=== PATIENT | female | born 1960 | race Caucasian/White ===

== ENCOUNTER 2024-06-25 10:32 | Outpatient (AMB) | payer MEDICARE, OTHER, SELFPAY ==
[2024-06-25 10:36] VITALS: BP 142/70; PULSE 90; O2SAT 98; BMI 22.5
--- NOTE | 2024-06-25 10:36 | A.OFFVIS_ITS ---
Vital Signs 06/25/24 10:36 Height 5 ft 3 in Weight 126 lb 12.253 oz BMI 22.5 BP 142/70 H Blood Pressure Location Lt brachial Position Sitting Pulse 90 Pulse Source Pulse Oximeter Pulse Oximetry (%) 98 Oxygen Delivery Method Room Air Intake Visit Reasons: Cough Scrap Drop Operator Required: No Allergies doxycycline Adverse Reaction (Severe, Verified 06/25/24 10:39) Stomach Upset HPI Comments Details: The patient is here for pulmonary evaluation. The patient is a 64-year-old woman with a known history of multiple sclerosis presenting with a persistent cough. Patient states that she was in her usual state health until back in October when she started developing a viral syndrome like symptoms. Subsequently after that she developed a cough and it has been persistent. The cough tends to be moderate severity. Typically worse when she lays flat specially when she is going to get a bed. The patient states that sometimes she is able to bring up some phlegm. Denies any hemoptysis. Recently she was at a restaurant and she was choking while eating chicken. Somebody in the restroom did give her Heimlich maneuver and remove some Unidentified food. The patient did have a chest x-ray just recently [facility]. We did review together without any significant disease although it appears that she does have a hernia. I also reviewed a CT scan of the chest that she had back in 2020. She did have a that it esophagus with food stuff suggesting some degree of reflux. In addition to that she did have a moderate size hiatal hernia. In addition to that the patient did have airspace disease primarily in the right lower lobe suggesting aspiration pneumonitis. I explained to the patient she has multiple reasons for her underlying cough. The patient does have evidence pneumonitis on her CT scan least from 2020. the x-rays non diagnostic. I do believe that repeating the CT scan be helpful in further addressing the abnormal findings seen before and her ongoing symptoms. In addition to that the patient likely has a component of upper airway cough syndrome. And also appears to have issues with gastroesophageal reflux disease. [facility] Medical History (Updated 06/25/24 @ 22:45 by Escobar Emerson MD) Multiple sclerosis Asthma Hiatal hernia Pneumonitis Chronic cough Social History (Updated 06/25/24 @ 10:43 by IHSAN Pandya) Patient Tobacco Use Status: Never used Tobacco Review of Systems Const Denies fever(s) ENT Reports dysphagia, Reports nasal discharge, Reports nasal obstruction and Reports post nasal drip Card Denies chest pain Resp Reports chest congestion, Reports cough and Denies wheezing GI Reports dysphagia Musc Reports no additional complaints Skin/Breast Denies rash Neuro Reports no additional complaints Osmar/Lymph Denies lymphadenopathy Aller/Immun Denies wheezing Physical Exam Vital Signs: Last Vital Signs Pulse 90 06/25/24 10:36 BP 142/70 H 06/25/24 10:36 Pulse Ox 98 06/25/24 10:36 Oxygen Delivery Method Room Air 06/25/24 10:36 BMI result Body Mass Index 22.5 Const General: comfortable HEENT General nose exam: Abnormal mucous membranes and turbinates present Mouth: moist mucous membranes abnormal Throat: Yes cobblestoning Neck Neck: Yes supple Chest Chest palpation & inspection: normal inspection of the chest Resp Effort & Inspection: normal respiratory effort and Actively coughing Auscultation: no crackles, no rales, no rhonchi, no wheezes and diminished lung sounds Cardio Heart sounds: S1 normal heart sound present and S2 normal heart sound present GI Palpation (GI): Soft to palpation Skin General skin exam: no rashes or lesions noted Assessment & Plan Assessment & Plan (1) Chronic cough: Code(s): R05.3 - Chronic cough Category: Medical (2) Pneumonitis: Code(s): J98.4 - Other disorders of lung Category: Medical (3) Hiatal hernia: Code(s): K44.9 - Diaphragmatic hernia without obstruction or gangrene Category: Medical (4) Asthma: Code(s): J45.909 - Unspecified asthma, uncomplicated Category: Medical Qualifiers: Asthma severity: moderate Asthma persistence: persistent Asthma complication type: uncomplicated Qualified Code(s): J45.40 - Moderate persistent asthma, uncomplicated Plan CT chest barium swallow start acapella valve start Augmentin cough medicine start Dulera BID continue STEFFI as needed reflux diet needs to sleep with HOB elevated F/U 4-6 weeks Orders: Orders CT chest wo IV con Today J98.4 - Other disorders of lung FL barium swallow Today K21.9 - Gastro-esophageal reflux disease without esophagitis, K44.9 - Diaphragmatic hernia without obstruction or gangrene Medications: New amoxicillin-pot clavulanate 875-125 mg 1 tab PO BID 10 days 20 tabs 0RF codeine-guaifenesin 10-100 mg/5 mL 10 mL PO Q6H 10 days PRN 300 mL 0RF cough mometasone-formoterol 200-5 mcg/actuation (Dulera) 2 puffs inhalation Q12H 30 days 13 grams 11RF Coding Level of Care Code New Pt Level 4 (60077) Diagnoses Chronic cough R05.3 Pneumonitis J98.4 Hiatal hernia K44.9 Moderate persistent asthma without complication J45.40 Asthma severity: moderate Asthma persistence: persistent Asthma complication type: uncomplicated Time Spent (min) 40
== END 2024-06-25 11:19 | disposition home or self-care (01) ==
PROVIDERS: PCP Pediatrics; Visit Provider Hospitalist
DX: R05.3 Chronic cough (principal); J98.4 Other disorders of lung; K44.9 Diaphragmatic hernia without obstruction or gangrene; J45.40 Moderate persistent asthma, uncomplicated
CPT/HCPCS: 99204

== ENCOUNTER → 2024-06-25 10:32 | Outpatient (BNVA) | payer MEDICARE, OTHER, SELFPAY | PROVIDERS: PCP Pediatrics; Visit Provider Hospitalist | DX: J98.4 Other disorders of lung (principal); R05.3 Chronic cough | CPT/HCPCS: 99202 ==

== ENCOUNTER 2024-08-26 11:10 | Outpatient (REF) | payer MEDICARE, OTHER, SELFPAY ==
--- NOTE | ~2024-08-26 | CT_ITS ---
EXAMINATION: CT CHEST WITHOUT CONTRAST CLINICAL INFORMATION: J98.4 - Other disorders of lung / PNEUMONITIS COMPARISON: None available. TECHNIQUE: Multidetector volumetric CT imaging of the chest was done. Axial MIP volume rendering provided. Sagittal and coronal reformatted images were obtained. This CT examination was performed using dose optimization techniques as appropriate, variously including the following: *Automated exposure control *Adjustment of mA and/or kV according to patient size (this includes techniques or standardized protocols for targeted exams where dose is matched to indication/reason for exam; i.e. extremities or head) *Use of iterative reconstruction technique DLP: 191 mGy-cm FINDINGS: LUNGS: No acute airspace disease. No interstitial lung disease. Central bronchial airways are open. Mild bilateral pleural parenchymal scarring at lung apices. Lung nodules: 3 mm right upper lobe lung nodule axial image 134/500 series 6. MEDIASTINUM: Heart size is normal. No aneurysm of aorta. Ascending aorta measures 3.8 cm. No pericardial effusion. Small volume calcifications of thoracic aorta. Moderate-sized hiatal hernia. No significant lymphadenopathy. CORONARY ARTERY CALCIFICATION: Small volume of coronary calcification PLEURA: There is no pleural effusion. No pleural mass or thickening. AXILLA: No lymphadenopathy. UPPER ABDOMEN: Unremarkable. OSSEOUS STRUCTURES: Multilevel degenerative spondylosis spine. Chronic mild compression deformity of the T8 vertebrae. No acute osseous abnormality. CT/CT chest wo IV con IMPRESSION: 1. No acute abnormality CT scan chest. 2. 3 mm right upper lobe lung nodule. No follow-up imaging recommended. According to the UPDATED 2017 Fleischner Society recommendations, the advised follow-up imaging for nodules <6mm in the upper lobes is not necessarily required in low-risk patients. In high-risk patients with a nodule in the upper lobe and/or demonstrating suspicious morphology, an optional CT follow-up at 12 months may be obtained. If stable at 12 months, no further follow-up is recommended. Moderate-sized hiatal hernia. Fleischner guidelines were followed. Electronically signed by: Patricio Badillo MD 09/24/2024 03:15 PM [facility]
== END 2024-08-26 11:11 | disposition home or self-care (01) ==
LOC: HO.CT 11:10
PROVIDERS: PCP Internal Medicine; Visit Provider Hospitalist
DX: J98.4 Other disorders of lung (principal)
CPT/HCPCS: 71250

== ENCOUNTER 2024-09-04 09:32 | Outpatient (REF) | payer MEDICARE, OTHER, SELFPAY ==
--- NOTE | ~2024-09-04 | FL_ITS ---
EXAMINATION: XR FLUOROSCOPY UPPER GI WITH AIR CLINICAL INFORMATION: Dysphagia. Reflux. COMPARISON: CT chest 08/2024 TECHNIQUE: Fluoroscopic air contrast upper GI examination was performed utilizing standard techniques with thin and thick barium and effervescent granules. Numerous spot images were obtained. FINDINGS: Lateral cine images of the oropharynx and hypopharynx demonstrate normal swallow mechanism with normal epiglottic inversion and soft palate elevation. No tracheal penetration, glottic or subglottic aspiration identified. No nasopharyngeal reflux present. A very small Zenker's diverticulum is present. There is moderate cricopharyngeal achalasia present. Dual and single contrast images of the esophagus demonstrate a very patulous esophagus. There is an overall granular appearance of the esophageal mucosa, suggestive of esophagitis. In addition, there is felinization of the mid and lower esophageal mucosa. There are multiple foci of contrast pooling throughout the esophagus, likely representing small mucosal ulcerations. There is mild narrowing of the GE junction, may represent achalasia. Esophageal peristalsis is moderately disorganized. A large type III paraesophageal hernia is present. Severe gastroesophageal reflux is seen up to the thoracic inlet. Dual contrast and single contrast images of the stomach demonstrated a normal contour. The gastric rugal folds have a severely thickened appearance, suggestive of gastritis. There are multiple small foci of contrast pooling in the fundus of the stomach within the hiatal hernia, which may represent small mucosal ulcerations. No masses are present. Contrast freely passed into the gastric antrum and duodenal bulb without delay. Single and air-contrast images of the duodenal bulb demonstrate no abnormality. The duodenal sweep has a normal appearance, course, and mucosal fold appearance. The imaged proximal jejunum has a normal fold pattern and caliber. FLUOROSCOPY TIME: 4 minutes 4 seconds Number of Spot Images: 13 Number of Cine: 14 DOSE AREA PRODUCT: 1779 uGy-m2 (microgray-meter squared) FL/FL barium swallow with air IMPRESSION: 1. Moderate cricopharyngeal achalasia. 2. Very small Zenker's diverticulum. 3. Granular appearance of the esophageal mucosa. In addition there are multiple foci of contrast pooling throughout the esophagus. These findings are suggestive of erosive gastritis. Recommend correlation of EGD. 4. Felinization of the mid and lower esophageal mucosa. This is a benign finding associated with chronic gastroesophageal reflux. 5. Moderate esophageal dysmotility. 6. Mild narrowing of the GE junction that may result achalasia. A benign stricture cannot be ruled out. 7. Type III paraesophageal hernia. 8. Severe gastric esophageal reflux. 9. Severely thickened appearance of the gastric rugal folds. In addition there are multiple small foci of contrast pooling in the fundus the stomach within the hiatal hernia. These findings are suggestive of erosive gastritis. Recommend correlation of EGD. This procedure was performed by Portillo Lopez PA-C, and supervised by Dr. Gilmore Electronically signed by: Latrell Gilmore MD 09/06/2024 04:19 PM [facility] [place]
== END 2024-09-04 09:33 | disposition home or self-care (01) ==
LOC: HO.XRAY 09:32
PROVIDERS: PCP Internal Medicine; Visit Provider Hospitalist
DX: K21.9 Gastro-esophageal reflux disease without esophagitis (principal); K44.9 Diaphragmatic hernia without obstruction or gangrene
CPT/HCPCS: 74221

== ENCOUNTER → 2024-09-04 09:33 | Outpatient (BNV) | payer MEDICARE, OTHER, SELFPAY | PROVIDERS: PCP Internal Medicine; Visit Provider Physician Assistant Surgical | DX: R13.10 Dysphagia, unspecified (principal); K21.9 Gastro-esophageal reflux disease without esophagitis | CPT/HCPCS: 74221; 74246 ==

== ENCOUNTER 2024-09-24 11:08 | Outpatient (AMB) | payer MEDICARE, OTHER, SELFPAY ==
[2024-09-24 11:10] VITALS: BP 132/68; PULSE 92; O2SAT 99; BMI 22.1
--- NOTE | 2024-09-24 11:10 | A.OFFVIS_ITS ---
Vital Signs 09/24/24 11:10 Height 5 ft 3 in Weight 124 lb 8.979 oz BMI 22.1 BP 132/68 Blood Pressure Location Lt brachial Position Sitting Pulse 92 Pulse Source Pulse Oximeter Pulse Oximetry (%) 99 Oxygen Delivery Method Room Air Intake Visit Reasons: Cough Sales Manager Prearranged Funerals Required: No Grinder Set Up Operator Surface: Grinder Set Up Operator Surface offered & declined Accompanied by: Self / Same As Patient Allergies doxycycline Adverse Reaction (Severe, Verified 09/24/24 11:17) Stomach Upset Medication List - Last Reconciled 09/24/24 by Lisa Prieto LPN albuterol sulfate 90 mcg/actuation 2 puffs inhalation Q6H PRN alendronate 70 mg PO QWEEK citalopram 20 mg PO DAILY codeine-guaifenesin 10-100 mg/5 mL 10 mL PO Q6H PRN 10 days dextroamphetamine-amphetamine 20 mg (Adderall) 20 mg PO DAILY dextroamphetamine-amphetamine 30 mg (Adderall) 30 mg PO DAILY lisinopril 5 mg PO DAILY mometasone-formoterol 200-5 mcg/actuation (Dulera) 2 puffs inhalation Q12H 30 days omeprazole 40 mg PO BID HPI Comments Details: The patient is a 64-year-old woman with a known history of multiple sclerosis presenting with a persistent cough. Patient states that she was in her usual state health until back in October when she started developing a viral syndrome like symptoms. Subsequently after that she developed a cough and it has been persistent. The cough tends to be moderate severity. Typically worse when she lays flat specially when she is going to get a bed. The patient states that sometimes she is able to bring up some phlegm. Denies any hemoptysis. Recently she was at a restaurant and she was choking while eating chicken. Somebody in the restroom did give her Heimlich maneuver and remove some Unidentified food. The patient did have a chest x-ray just recently [facility]. We did review together without any significant disease although it appears that she does have a hernia. I also reviewed a CT scan of the chest that she had back in 2020. She did have a that it esophagus with food stuff suggesting some degree of reflux. In addition to that she did have a moderate size hiatal hernia. In addition to that the patient did have airspace disease primarily in the right lower lobe suggesting aspiration pneumonitis. I explained to the patient she has multiple reasons for her underlying cough. The patient does have evidence pneumonitis on her CT scan least from 2020. the x-rays non diagnostic. I do believe that repeating the CT scan be helpful in further addressing the abnormal findings seen before and her ongoing symptoms. In addition to that the patient likely has a component of upper airway cough syndrome. And also appears to have issues with gastroesophageal reflux disease. 09/24/2024 the patient is here for a pulmonary follow-up visit. The patient overall has been doing better. Cough is subsides some degree in her chest tightness and cough have improved. She still has some chest congestion though and does been phlegm up on a regular basis. The patient did undergo a barium swallow is very abnormal. However, she does have a follow-up with Gastroenterology tomorrow which is timely. She will definitely need to undergo an endoscopy to better address the findings on her barium swallow. In the meantime we talked about the importance about sleeping elevated and continue reflux diet to try to minimize on the potential chronic cough in bronchitis symptoms. The patient did undergo a CT scan of the chest that was personally by me. Does not been officially read yet. But it definitely demonstrates that the patient has a large hiatal hernia in addition to that evidence of chronic bronchitis with some bronchiectatic changes the bases which could be due to microaspiration on a regular basis. She has responded well to the Dulera her exam is much better. And she does have her rescue inhaler that she can use as needed. She did receive the Acapella valve and she was not sure how to use it so we did go over she is going to start using at least once a day as a good way of exercising her lungs and also providing good bronchopulmonary hygiene. The patient returned back in the fall. She has any issues before that she can always call for an earlier assessment. In the meantime will wait for the final report of her CT scan of the chest. [facility] Medical History (Updated 09/24/24 @ 21:51 by Escobar Emerson MD) Multiple sclerosis Asthma Hiatal hernia Pneumonitis Chronic cough Social History Patient Tobacco Use Status: Never used Tobacco Review of Systems Const Denies fever(s) ENT Reports dysphagia and Reports nasal discharge Card Denies chest pain Resp Reports chest congestion, Reports cough and Denies wheezing GI Reports dysphagia Musc Reports no additional complaints Skin/Breast Denies rash Neuro Reports no additional complaints Osmar/Lymph Denies lymphadenopathy Aller/Immun Denies wheezing Physical Exam Vital Signs: Last Vital Signs Pulse 92 09/24/24 11:10 BP 132/68 09/24/24 11:10 Pulse Ox 99 09/24/24 11:10 Oxygen Delivery Method Room Air 09/24/24 11:10 BMI result Body Mass Index 22.1 Const General: comfortable HEENT General nose exam: Abnormal mucous membranes and turbinates present Mouth: moist mucous membranes abnormal Throat: Yes cobblestoning Neck Neck: Yes supple Chest Chest palpation & inspection: normal inspection of the chest Resp Effort & Inspection: normal respiratory effort Auscultation: no crackles, no rales, no rhonchi, no wheezes and diminished lung sounds Cardio Heart sounds: S1 normal heart sound present and S2 normal heart sound present GI Palpation (GI): Soft to palpation Skin General skin exam: no rashes or lesions noted Assessment & Plan Assessment & Plan (1) Chronic cough: Code(s): R05.3 - Chronic cough Category: Medical (2) Pneumonitis: Comment: resolved Code(s): J98.4 - Other disorders of lung Category: Medical (3) Hiatal hernia: Code(s): K44.9 - Diaphragmatic hernia without obstruction or gangrene Category: Medical (4) Asthma: Code(s): J45.909 - Unspecified asthma, uncomplicated Category: Medical Qualifiers: Asthma complication type: uncomplicated Asthma persistence: persistent Asthma severity: moderate Qualified Code(s): J45.40 - Moderate persistent asthma, uncomplicated Plan acapella valve Dulera BID continue STEFFI as needed reflux diet needs to sleep with HOB elevated GI F/U F/U 8-12 months Coding Level of Care Code Est Pt Level 4 (17718) Diagnoses Chronic cough R05.3 Pneumonitis J98.4 Hiatal hernia K44.9 Moderate persistent asthma without complication J45.40 Asthma complication type: uncomplicated Asthma persistence: persistent Asthma severity: moderate Time Spent (min) 17
--- OUTSIDE RECORDS SUMMARY | 2024-10-01 13:17 | XMS_ITS ---
[facility] Name [facility] Unknown History of Medication Use Medication Directions Dispensed Refills Start Date End Date Status methylPREDNISolone sodium succinate (SOLU-Medrol) injection 125 mg 125 mg, Intravenous, Once, On Mon05/22/24 at 1115, For 1 doseGive 30 minutes prior to ocrelizumab. ??Administer over 2-3 minutes 4 completed diphenhydrAMINE (BENADRYL) injection 50 mg 50 mg, Intravenous, Once, On Mon05/22/24 at 1115, For 1 doseGive 30 minutes prior to ocrelizumab. IV push over 2-3 minutes.??See PO diphenhydramine order. Please give PO or IV.??Common Side Effects: Drowsiness, stomach upset, confusion, dry mouth.??Administer undiluted. Maximum rate 25 mg/min. 4 completed omeprazole (PriLOSEC) 40 MG capsule 4 active amphetamine-dextroamph etamine (ADDERALL) 20 MG tablet TK 1 T PO QD 4 active acetaminophen (TYLENOL) tablet 975 mg 975 mg, Oral, Once, On Mon05/22/24 at 1115, For 1 doseGive 30 minutes prior to ocrelizumab. 4 completed Calcium Carb-Cholecalciferol (Oyster Shell Calcium) 500-400 MG-UNIT TABS Take 1 tablet by mouth. 4 active citalopram (CeleXA) 20 MG tablet 4 active alendronate (FOSAMAX) tablet 70 mg 4 active lisinopril (PRINIVIL,ZESTRIL) tablet 5 mg 4 active amphetamine-dextroamph etamine (ADDERALL) 30 MG tablet Take 1 tablet (30 mg total) by mouth. 4 active Ocrelizumab (OCREVUS IV) Inject into the vein. 4 active ocrelizumab (OCREVUS) 600 mg in sodium chloride (NS) 0.9 % 500 mL IVPB 600 mg, Intravenous, Once, On Mon05/22/24 at 1115, For 1 doseMust use in-line 0.22 micron filter. ??- Infusion Rate for first full 600 mg dose or reaction with previous infusion: Start at 40 mL/hr. Increase by 40 mL/hr every 30 minutes. Maximum rate: 200 mL/hr. Duration: 3.5 hours or longer.??- Infus 4 completed albuterol (PROVENTIL HFA;VENTOLIN HFA) 108 (90 Base) MCG/ACT inhaler Inhale 2 puffs into the lungs. 4 active baclofen (LIORESAL) 10 MG tablet 5 per day as directed 4 active LORazepam (ATIVAN) 0.5 MG tablet Take 1 tablet (0.5 mg total) by mouth daily as needed. for anxiety 4 active busPIRone (BUSPAR) 30 MG tablet TK 2 TS PO HS 4 active estradiol (ESTRACE) 0.1 MG/GM vaginal cream Place 1 g vaginally. 4 active vitamin D3 (cholecalciferol) 25 MCG (1000 UT) tablet Take 1 tablet (25 mcg total) by mouth daily. 4 active No known medications No known medications 4 active Problems Problem Status Onset Date Problem Type Date of Resoluti on Source Depression active 2020-03-26 ProblemAct [facility] Multiple sclerosis active 2020-07-14 ProblemAct [facility] Asthma active 2020-03-26 ProblemAct [facility] HTN (hypertension) active 2020-03-26 ProblemAct [facility]
== END 2024-09-24 11:42 | disposition home or self-care (01) ==
PROVIDERS: PCP Internal Medicine; Visit Provider Hospitalist
DX: R05.3 Chronic cough (principal); J98.4 Other disorders of lung; K44.9 Diaphragmatic hernia without obstruction or gangrene; J45.40 Moderate persistent asthma, uncomplicated
CPT/HCPCS: 99214

== ENCOUNTER → 2024-09-24 11:08 | Outpatient (BNVA) | payer MEDICARE, OTHER, SELFPAY | PROVIDERS: PCP Pediatrics; Visit Provider Hospitalist | DX: J45.40 Moderate persistent asthma, uncomplicated (principal); J98.4 Other disorders of lung; R05.3 Chronic cough; K44.9 Diaphragmatic hernia without obstruction or gangrene | CPT/HCPCS: 99212 ==

== ENCOUNTER 2025-07-24 11:19 | Outpatient (AMB) | payer MEDICARE, OTHER, SELFPAY ==
--- NOTE | 2025-07-24 11:20 | MHC.OFFVIS ---
Vital Signs 07/24/25 11:21 Height 5 ft 3 in Weight 122 lb 5.705 oz BMI 21.7 BP 156/88 H Blood Pressure Location Lt brachial Position Sitting Pulse 68 Pulse Source Pulse Oximeter Pulse Oximetry (%) 100 Oxygen Delivery Method Room Air Intake Visit Reasons: Cough Director Of Employer Services Required: No Accompanied by: Self / Same As Patient Allergies doxycycline Adverse Reaction (Severe, Verified 07/24/25 11:24) Stomach Upset HPI Comments Details: The patient is a 65-year-old woman with a known history of multiple sclerosis presenting with a persistent cough. Patient states that she was in her usual state health until back in October when she started developing a viral syndrome like symptoms. Subsequently after that she developed a cough and it has been persistent. The cough tends to be moderate severity. Typically worse when she lays flat specially when she is going to get a bed. The patient states that sometimes she is able to bring up some phlegm. Denies any hemoptysis. Recently she was at a restaurant and she was choking while eating chicken. Somebody in the restroom did give her Heimlich maneuver and remove some Unidentified food. The patient did have a chest x-ray just recently [facility]. We did review together without any significant disease although it appears that she does have a hernia. I also reviewed a CT scan of the chest that she had back in 2020. She did have a that it esophagus with food stuff suggesting some degree of reflux. In addition to that she did have a moderate size hiatal hernia. In addition to that the patient did have airspace disease primarily in the right lower lobe suggesting aspiration pneumonitis. I explained to the patient she has multiple reasons for her underlying cough. The patient does have evidence pneumonitis on her CT scan least from 2020. the x-rays non diagnostic. I do believe that repeating the CT scan be helpful in further addressing the abnormal findings seen before and her ongoing symptoms. In addition to that the patient likely has a component of upper airway cough syndrome. And also appears to have issues with gastroesophageal reflux disease. 09/24/2024 the patient is here for a pulmonary follow-up visit. The patient overall has been doing better. Cough is subsides some degree in her chest tightness and cough have improved. She still has some chest congestion though and does been phlegm up on a regular basis. The patient did undergo a barium swallow is very abnormal. However, she does have a follow-up with Gastroenterology tomorrow which is timely. She will definitely need to undergo an endoscopy to better address the findings on her barium swallow. In the meantime we talked about the importance about sleeping elevated and continue reflux diet to try to minimize on the potential chronic cough in bronchitis symptoms. The patient did undergo a CT scan of the chest that was personally by me. Does not been officially read yet. But it definitely demonstrates that the patient has a large hiatal hernia in addition to that evidence of chronic bronchitis with some bronchiectatic changes the bases which could be due to microaspiration on a regular basis. She has responded well to the Dulera her exam is much better. And she does have her rescue inhaler that she can use as needed. She did receive the Acapella valve and she was not sure how to use it so we did go over she is going to start using at least once a day as a good way of exercising her lungs and also providing good bronchopulmonary hygiene. The patient returned back in the fall. She has any issues before that she can always call for an earlier assessment. In the meantime will wait for the final report of her CT scan of the chest. 07/24/2025 the patient is here for pulmonary follow-up visit. She continues have a cough. The cough is moderate severity mainly worse when she lays flat. Therefore she has been sleeping on a recliner. She does a lot better with that. We did again review her barium swallow demonstrating hiatal hernia and significant reflux disease and also other changes including a possible was Zenker's and significant gastritis. The last time she had an endoscopy was many years ago. She did follow-up with Dr. Lao in the past. Now she has a new GI doctor. I did encourage her to go back to GI because she should get another endoscopy in view of all the changes in abnormalities noted on the barium swallow. In the meantime she is doing the PPI twice a day. I did request that she can add Pepcid at nighttime to help her with some of the symptoms. The patient should also sleep elevated. We did talk about bed risers for the bed and following closely reflux diet. Will start her on nasal sprays for the possibility of an upper airway cough syndrome but I do not see any significant cobblestoning in the back of the throat or significant postnasal drip. Still will can try the nasal spray to see if this provides some relief and the patient can also try Bentson Josh as needed for cough. She does take an JOSH inhibitor. Not likely the culprit but likely increasing bradykinesia and therefore decreasing the cough threshold. 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 Will follow-up in 6 months if she has any issues prior to this she can always call further recommendations. [facility] Medical History (Updated 09/24/24 @ 21:51 by Escobar Emerson MD) Multiple sclerosis Asthma Hiatal hernia Pneumonitis Chronic cough Social History Patient Tobacco Use Status: Never used Tobacco Review of Systems Const Denies fever(s) ENT Reports dysphagia and Reports nasal discharge Card Denies chest pain Resp Reports chest congestion, Reports cough and Denies wheezing GI Reports dysphagia Musc Reports no additional complaints Skin/Breast Denies rash Neuro Reports no additional complaints Osmar/Lymph Denies lymphadenopathy Aller/Immun Denies wheezing Physical Exam Vital Signs: Last Vital Signs Pulse 68 07/24/25 11:21 BP 156/88 H 07/24/25 11:21 Pulse Ox 100 07/24/25 11:21 Oxygen Delivery Method Room Air 07/24/25 11:21 BMI result Body Mass Index 21.7 Const General: comfortable HEENT General nose exam: Abnormal mucous membranes and turbinates present Mouth: moist mucous membranes abnormal Throat: Yes cobblestoning Neck Neck: Yes supple Chest Chest palpation & inspection: normal inspection of the chest Resp Effort & Inspection: normal respiratory effort Auscultation: no crackles, no rales, no rhonchi, no wheezes and diminished lung sounds Cardio Heart sounds: S1 normal heart sound present and S2 normal heart sound present GI Palpation (GI): Soft to palpation Skin General skin exam: no rashes or lesions noted Assessment & Plan Assessment & Plan (1) Chronic cough: Code(s): R05.3 - Chronic cough Category: Medical (2) Pneumonitis: Comment: resolved Code(s): J98.4 - Other disorders of lung Category: Medical (3) Hiatal hernia: Code(s): K44.9 - Diaphragmatic hernia without obstruction or gangrene Category: Medical (4) Asthma: Code(s): J45.909 - Unspecified asthma, uncomplicated Category: Medical Qualifiers: Asthma complication type: uncomplicated Asthma persistence: persistent Asthma severity: moderate Qualified Code(s): J45.40 - Moderate persistent asthma, uncomplicated Plan acapella valve CPT Dulera BID continue STEFFI as needed reflux diet needs to sleep with HOB elevated Would benefit from EGD change JOSH to ARB Benzonates as needed Add Pepcid 40mg QHS start Fluticasone nasal spray F/U 8-12 months Medications: New benzonatate 200 mg PO BID PRN 60 caps 3RF cough 30 days fluticasone propionate 50 mcg/actuation 2 sprays intranasal DAILY 15.8 mL 11RF 30 days J31.0 - Chronic rhinitis famotidine (Pepcid) 40 mg PO BEDTIME 30 tabs 5RF 30 days Coding Level of Care Code Est Pt Level 4 (12672) Complex EM visit Add On G2211 Diagnoses Chronic cough R05.3 Pneumonitis J98.4 Hiatal hernia K44.9 Moderate persistent asthma without complication J45.40 Asthma complication type: uncomplicated Asthma persistence: persistent Asthma severity: moderate Time Spent (min) 17
[2025-07-24 11:21] VITALS: BP 156/88; PULSE 68; O2SAT 100; BMI 21.7
--- OUTSIDE RECORDS SUMMARY | 2025-07-24 13:13 | XMS_ITS | Clinical Summary ---
Author Organization [facility] Address [address] [place] [address] Care Team Providers Care Improvement Lead Name Role Phone Ramana Kraft MD Primary Care Provider [phone] Allergies Active Allergy Reactions Criticality Noted Date Comments Doxycycline Itching Medium 07/10/2020 Trazodone 02/06/2024 Other reaction(s): excessive sedation Medications Medication Sig Dispensed Refills Start Date End Date Status albuterol (PROVENTIL HFA;VENTOLIN HFA) 108 (90 Base) MCG/ACT inhaler Inhale 2 puffs into the lungs. 0 Active amphetamine-dextroam phetamine (ADDERALL) 30 MG tablet Take 1 tablet (30 mg total) by mouth. 0 Active amphetamine-dextroam phetamine (ADDERALL) 20 MG tablet TK 1 T PO QD 0 02/29/2020 Active busPIRone (BUSPAR) 30 MG tablet TK 2 TS PO HS 0 03/05/2020 Active citalopram (CeleXA) 20 MG tablet 0 02/02/2020 Active lisinopril (PRINIVIL,ZESTRIL) tablet 5 mg 0 01/13/2020 Active omeprazole (PriLOSEC) 40 MG capsule 0 03/17/2020 Active Ocrelizumab (OCREVUS IV) Inject into the vein. 0 Active LORazepam (ATIVAN) 0.5 MG tablet Take 1 tablet (0.5 mg total) by mouth daily as needed. for anxiety 30 tablet 1 09/06/2021 Active alendronate (FOSAMAX) tablet 70 mg 0 2022 Active Calcium Carb-Cholecalciferol (Oyster Shell Calcium) 500-400 MG-UNIT TABS Take 1 tablet by mouth. 0 Active estradiol (ESTRACE) 0.1 MG/GM vaginal cream Place 1 g vaginally. 0 08/03/2021 Active vitamin D3 (cholecalciferol) 25 MCG (1000 UT) tablet Take 1 tablet (25 mcg total) by mouth daily. 0 Active baclofen (LIORESAL) 10 MG tablet 5 per day as directed 450 tablet 3 05/01/2023 Active Active Problems Problem Noted Date Diagnosed Date Multiple sclerosis 07/14/2020 HTN (hypertension) 03/26/2020 Depression 03/26/2020 Asthma 03/26/2020 Family History Medical History Relation Name Comments Hypertension Father Multiple sclerosis Father Heart attack Maternal Grandfather Stroke Maternal Grandfather Hypertension Mother Uterine cancer Mother Multiple sclerosis Paternal Aunt Relation Name Status Comments Father Alive Maternal Grandfather Mother Paternal Aunt Social History Tobacco Use Types Packs/Day Years Used Date Smoking Tobacco: Never Smokeless Tobacco: Never Tobacco Cessation:Counseling Given: Not Answered Alcohol Use Standard Drinks/Week Comments Yes 0 (1 standard drink = 0.6 oz pur e alcohol) Sex and Gender Information Value Date Recorded Sex Assigned at Female 12/25/2020 3:59 PM EST Gender Identity Not on file Sexual Orientation Not on file Job Start Date Occupation Industry Not on file Not on file Not on file Last Filed Vital Signs Vital Sign Reading Time Taken Comments Blood Pressure 157/95 06/06/2024 2:39 PM EDT Pulse 92 06/06/2024 2:39 PM EDT Temperature 36.2 C (97.2 F) 06/06/2024 2:39 PM EDT Respiratory Rate 18 05/22/2024 1:24 PM EDT Oxygen Saturation 96% 06/06/2024 2:39 PM EDT Inhaled Oxygen Concentration - - Weight 57.2 kg (126 lb) 06/06/2024 2:39 PM EDT Height 160 cm (5' 3 ) 06/06/2024 2:39 PM EDT Body Mass Index 22.32 06/06/2024 2:39 PM EDT Plan of Treatment Health Maintenance Due Date Last Done Comments Hepatitis C Screening 1960 Pneumococcal Vaccine (1 of 2 - PCV) 1965 Depression Screening 1971 Preventative Health Evaluation 1977 Colon Cancer Screening (Colonoscopy) 01/08/2004 Breast Cancer Screening (Mammogram) 2009 Shingrix-Zoster Vaccine (1 of 2) 2009 DTap / Tdap / Td (2 - Td or Tdap) 03/27/2022 03/27/2012, 03/30/2002 Fall Risk Assessment 01/08/2024 Osteoporosis Screening (DEXA Scan) 01/08/2024 COVID-19 Vaccine ( season) 2025 01/27/2022, 07/14/2021, 01/09/2021, Additional history exists Influenza Vaccine (#1) 2025 , 07/23/2021, 07/16/2018 RSV Adult > 60+ Yrs or (1 - 1-dose 75+ series) 2034 Hepatitis B Vaccines Aged Out No long er eligible based on patient's age to complete this topic RSV Ped < 20 months Aged Out No longe r eligible based on patient's age to complete this topic Care Teams Improvement Lead Relationship Specialty Start Date End Date Ramana Kraft MD [address] [place] [address] [place] [id number] PCP - General Internal Medicine 05/08/20
--- OUTSIDE RECORDS SUMMARY | 2025-07-24 13:13 | XMS_ITS ---
Author Name [facility] Organization Unknown History of Medication Use Medication Directions Dispensed Refills Start Date End Date Stat ocrelizumab (OCREVUS) 600 mg in sodium chloride (NS) 0.9 % 500 mL IVPB 600 mg, Intravenous, Once, On Mon05/22/24 at 1115, For 1 doseMust use in-line 0.22 micron filter. - Infusion Rate for first full 600 mg dose or reaction with previous infusion: Start at 40 mL/hr. Increase by 40 mL/hr every 30 minutes. Maximum rate: 200 mL/hr. Duration: 3.5 hours or longer. - Infus 05/22/2024 05/22/2024 completed alendronate (FOSAMAX) tablet 70 mg 2022 active estradiol (ESTRACE) 0.1 MG/GM vaginal cream Place 1 g vaginally. 08/03/2021 active omeprazole (PriLOSEC) 40 MG capsule 03/17/2020 active amphetamine-dextro amphetamine (ADDERALL) 20 MG tablet TK 1 T PO QD 02/29/2020 active lisinopril (PRINIVIL,ZESTRIL) tablet 5 mg 01/13/2020 active albuterol (PROVENTIL HFA;VENTOLIN HFA) 108 (90 Base) MCG/ACT inhaler Inhale 2 puffs into the lungs. active amphetamine-dextro amphetamine (ADDERALL) 30 MG tablet Take 1 tablet (30 mg total) by mouth. active Calcium Carb-Cholecalcifer ol (Oyster Shell Calcium) 500-400 MG-UNIT TABS Take 1 tablet by mouth. active No known medications No known medications active Ocrelizumab (OCREVUS IV) Inject into the vein. active Allergies Allergen Reaction Severity Comment Documented Date Source Statu s TRAZODONE Other reaction( s): excessive sedation 02/06/2024 [facility] active DOXYCYCLINE ITCHING 07/10/2020 [facility] active Problems Problem Status Onset Date Problem Type Date of Resoluti on Source Asthma active 2020-03-26 ProblemAct [facility] Multiple sclerosis active 2020-07-14 ProblemAct [facility] HTN (hypertension) active 2020-03-26 ProblemAct [facility] Depression active 2020-03-26 ProblemAct [facility] Encounters Encounter Type Encounter Reason Primary Diagnosis Location Date Ambulatory Pain in left ankle and joints of left foot Pain in left ankle and joints of left foot [facility] 12/19/2023 Ambulatory Pain in left ankle and joints of left foot Pain in left ankle and joints of left foot [facility] 12/19/2023 Care Team Organization Name Specialty Phone Email Start Date End [facility] 12/21/2023 [facility] 12/19/2023 01/08/2025 [facility] 11/21/2023 [facility] 11/21/2023
--- OUTSIDE RECORDS SUMMARY | 2025-07-24 13:13 | XMS_ITS | Encounter Summary ---
Author Organization [facility] Address [address] [place] [address] Care Team Providers Care Meals On Wheels Driver Name Role Phone Ramana Kraft MD Primary Care Provider [phone] Encounter Details Date Type Department Care Team ([facility] st Contact Info) Description 01/09/2024 Scanned Document [facility] [address] Delroy Oseguera MD [address] [place] [address] Social History Tobacco Use Types Packs/Day Years Used Date Smoking Tobacco: Never Assessed Comments Unknown Sex and Gender Information Value Date Recorded Sex Assigned at Not on file Legal Sex Female 10:13 AM EDT Gender Identity Female 12/14/2023 1:35 PM EST Sexual Orientation Not on file documented as of this encounter Plan of Treatment Not on file documented as of this encounter Visit Diagnoses Not on filedocumented in this encounter Care Teams Meals On Wheels Driver Relationship Specialty Start Date End Date Ramana Kraft MD [address] [place] [id number] PCP - General 11/21/23 documented as of this encounter
--- OUTSIDE RECORDS SUMMARY | 2025-07-24 13:13 | XMS_ITS | Clinical Summary ---
Author Organization [facility] Address [address] [place] [id number] Care Team Providers Care Network Program Manager Name Role Phone Ramana Kraft MD Primary Care Provider [phone] Medications No known medications Active Problems No known active problems Social History Tobacco Use Types Packs/Day Years Used Date Smoking Tobacco: Never Assessed Comments Unknown Sex and Gender Information Value Date Recorded Sex Assigned at Not on file Legal Sex Female 10:13 AM EDT Gender Identity Female 12/14/2023 1:35 PM EST Sexual Orientation Not on file Plan of Treatment Health Maintenance Due Date Last Done Comments Advance Care Planning 1960 Hepatitis C Virus Screening 1959 DTaP/Tdap/Td Vaccines (1 - Tdap) 1978 Mammogram 1999 Colonoscopy 01/08/2004 Pneumococcal Vaccines 50+ (1 of 1 - PCV) 2009 Zoster (Shingles) Vaccine (1 of 2) 2009 DXA Bone Density (Females,Ages 65 and older) 01/08/2024 Influenza Vaccine 05/23/2025 COVID-19 Vaccine ( season) 2025 01/27/2022, 07/14/2021, 01/09/2021, Additional history exists RSV Vaccine 60 years and older and Patients (1 - 1-dose 75+ series) 2034 Hepatitis B Vaccines Aged Out No long er eligible based on patient's age to complete this topic Insurance MEDICARE PART B [facility] Care Teams Network Program Manager Relationship Specialty Start Date End Date Ramana Kraft MD [address] [place] [phone] PCP - General 11/21/23
--- OUTSIDE RECORDS SUMMARY | 2025-07-24 13:13 | XMS_ITS | Clinical Summary ---
Author Organization 175 [facility] Address [address] [place] [address] Phone Care Team Providers Care Entrepreneur Name Role Phone Ramana Kraft MD Primary Care Provider [phone] Allergies Active Allergy Reactions Criticality Noted Date Comments Amoxicillin-Pot Clavulanate GI intolerance 03/06/2025 Doxycycline Itching Medium 07/10/2020 Levonorgestrel-Ethinyl Estrad 10/17/2018 Trazodone 02/06/2024 Other reaction(s): excessive sedation Medications albuterol HFA (PROAIR HFA ; PROVENTIL HFA ; VENTOLIN HFA) 90 mcg/actuation inhaler Inhale 2 puffs. Acti ve alendronate (FOSAMAX) 70 mg tablet Take 1 tablet (70 mg total) by mouth. 2 Active calcium carbonate-vitami n D3 500 mg-3.125 mcg (125 unit) tablet per tabelt Take 1 tablet by mouth. Active citalopram (CeleXA) 20 mg tablet Take 1 tablet (20 mg total) by mouth. 0 Active amphetamine-dext roamphetamine (ADDERALL) 20 mg tablet Take 1 tablet (20 mg total) by mouth 1 (one) time each day. Max Daily Amount: 20 mg 0 Active estradioL (ESTRACE) 0.01 % (0.1 mg/gram) vaginal cream Insert 1 g into the vagina. 1 Active fluticasone propionate (FLONASE) 50 mcg/actuation nasal spray Administer 2 sprays into affected nostril(s). Active fluticasone-salm eterol (Advair Diskus) 250-50 mcg/dose diskus inhaler 0 Active LORazepam (ATIVAN) 0.5 mg tablet Take 1 tablet (0.5 mg total) by mouth. 1 Active omeprazole (PriLOSEC) [address] capsule 0 Active lisinopriL (PRINIVIL,ZESTRI L) 5 mg tablet 0 Active sodium chloride 0.9 % parenteral solution 500 mL with ocrelizumab 30 mg/mL solution 600 mg Infuse 600 mg into a venous catheter. Active cholecalciferol (VITAMIN D-3) 25 mcg (1,000 unit) tablet Take 1 tablet (1,000 Units total) by mouth. Active budesonide-formo teroL (SYMBICORT) 160-4.5 mcg/actuation inhaler Inhale 2 puffs by mouth 2 (two) times a day. Active Dulera 200-5 mcg/actuation inhaler Inhale 2 puffs by mouth every 12 (twelve) hours if needed. 4 Active pantoprazole (PROTONIX) 40 mg EC tabletIndication s:Gastroesophage al reflux disease, unspecified whether esophagitis present,Large hiatal hernia Take 1 tablet (40 mg total) by mouth 2 (two) times a day. Do not crush, chew, or split. 180 each 3 5 03/07/20 26 Active Active Problems Problem Noted Date Diagnosed Date GERD (gastroesophageal reflux disease) 5 Assessment & Plan (03/07/2025 5:45 PM EDT): Orders: pantoprazole (PROTONIX) 40 mg EC tablet; Take 1 tablet (40 mg total) by mouth 2 (two) times a day. Do not crush, chew, or split. Esophageal pH monitoring, 24-hour; Future Manometry Esophageal; Future Iron deficiency anemia 03/06/2025 Osteoporosis 03/06/2025 Rib fractures 03/06/2025 Thyroid nodule 03/06/2025 Multiple sclerosis 07/14/2020 Depression 03/26/2020 Hypertension 05/16/2017 Vitamin D deficiency 05/16/2017 Asthma 02/06/2017 Multiple thyroid nodules 01/29/2017 Chronic sinusitis 01/04/2017 Scoliosis 09/23/2015 Hyperkalemia 07/15/2014 Edema 03/28/2013 Restless leg 09/10/2010 Encounters Date Type Department Care Team Description 06/03/2025 10:00 AM EDT Office Visit [facility] [place] [address] [place] [address] Lizzie Flaherty MD Multiple sclerosis ([facility] V24, [facility] V28) (Primary Dx); Gait abnormality; Vitamin D deficiency; High risk medication use 06/03/2025 10:00 AM EDT - 06/03/2025 11:59 PM EDT Hospital Encounter [facility] - [place] [address] [place] [phone] Multiple sclerosis (CMS/HCC V24, CMS/[facility] V28) (Primary Dx); Encounter for therapeutic drug monitoring Discharge Disposition: Home or Self Care from Last 3 Months Immunizations Immunization Administration Dates Next Due Influenza Quadravalent, MDCK , 0.5ml, preservative free (Flucelvax) 6mo and older 08/24/2022 Influenza Quadrivalent, 0.5m l, preservative free (Fluarix; FluLaval; Fluzone) ages 6mo and older (Afluria) 3yo and older 07/28/2023 Influenza trivalent, with pr eservative (Fluzone; Afluria) 6mo and older 09/25/2024,07/23/2021,07/16/2018 Pfizer (ages 12 & older) MAE S-CoV-2 COVID-19, mRNA, LNP-S, susy-sucrose, preservative free 01/27/2022 Pfizer SARS-CoV-2 COVID-19, mRNA, LNP-S, preservative free 07/14/2021,01/09/2021,12/19/2020 Pneumococcal conjugate 20 va lent (Prevnar 20, PCV 20) 2mo and older 10/29/2024 Td, Unspecified 03/30/2002 Tdap Tetanus diptheria acell ular pertussis (Boostrix; Adacel) 7yo and older 03/27/2012 Surgical History Surgery Date Site/Laterality Comments NASAL ENDOSCOPY W/ BALLON SINUPLASTY PROCEDURE:NASAL ENDOSCOPY W/ BALLON SINUPLASTY NASAL SINUS SURGERY 2010 PROCEDURE:NASAL SINUS SURGERY FOOT SURGERY PROCEDURE:FOOT SURGERY ESOPHAGOGASTRODUODENOSCOPY 09/22/2024 - 10/22/2024 Mild Schatzki ring dilated, upper esophageal bar dilated, large hiatal hernia Dr. Crawley ESOPHAGOGASTRODUODENOSCOPY 11/23/2022 - 12/20/2022 mildly severe reflux esophagitis, medium sized hiatal hernia, fundic gland polyps COLONOSCOPY 11/23/2022 - 12/20/2022 unremarkable (5yr) Dr. Crawley Medical History Medical History Date Comments Asthma DX:Asthma Acid reflux DX:Acid reflux Hypertension DX:Hypertension Multiple sclerosis DX:Multiple s clerosis (HCC) Recurrent sinusitis DX:Recurrent sinusitis Family History Medical History Relation Name Comments Hypertension Father Multiple sclerosis Father Multiple sclerosis Father's Sister Heart attack Maternal Grandfather Stroke Maternal Grandfather Hypertension Mother Uterine cancer Mother Relation Name Status Comments Father Alive Father's Sister Maternal Grandfather Mother Social History Tobacco Use Types Packs/Day Years Used Date Smoking Tobacco: Never Smokeless Tobacco: Never Alcohol Use Standard Drinks/Week Comments Yes 0 (1 standard drink = 0.6 oz pur e alcohol) Comments Unknown Sex and Gender Information Value Date Recorded Sex Assigned at Not on file Legal Sex Female 11:56 AM EST Gender Identity Not on file Sexual Orientation Not on file Obstetrics History Last Filed Vital Signs Vital Sign Reading Time Taken Comments Blood Pressure 138/93 06/03/2025 1:51 PM EDT Pulse 102 06/03/2025 1:51 PM EDT Temperature 36.1 C (97 F) 06/03/2025 1:51 PM EDT Respiratory Rate 18 06/03/2025 1:51 PM EDT Oxygen Saturation 97% 06/03/2025 1:51 PM EDT Inhaled Oxygen Concentration - - Weight 56.7 kg (125 lb) 03/07/2025 1:59 PM EDT Height 160 cm (5' 3 ) 03/07/2025 1:59 PM EDT Body Mass Index 22.14 03/07/2025 1:59 PM EDT Plan of Treatment Upcoming Encounters Date Type Department Care Team (Late st Contact Info) Description 10/07/2025 1:00 PM EST Office Visit [facility] [place] [address] [place] [address] Tawana Irby PA 175 [facility] [address] [place] [address] 11/25/2025 12:00 PM EST Appointment [facility] - [place] [address] [place] [phone] Health Maintenance Due Date Last Done Comments Breast Cancer Screening 1960 Zoster Vaccines (1 of 2) 2009 RSV Immunization Adult Patients (1 - Risk 60-74 years 1-dose series) 2019 DTaP,Tdap,and Td Vaccines (3 - Td or Tdap) 03/27/2022 03/27/2012, 03/30/2002 Cholesterol Screening (Lipid Panel) 09/29/2022 Hepatitis C Screening 09/29/2022 Medicare Annual Wellness Visit 09/29/2022 Osteoporosis Screening (Bone Density Screening) 09/29/2022 Social Influencers of Health Screening 09/29/2022 Falls Risk Assessment 01/08/2024 Depression Screening 10/23/2024 COVID-19 Vaccine ( season) 2025 07/28/2023, 12/30/2022, 01/27/2022, Additional history exists Influenza Vaccine (#1) 2025 , 07/28/2023, 08/24/2022, Additional history exists Hypertension/CHF/CAD Annual BMP Blood Test 06/03/2026 06/03/2025, 12/06/2024 Colorectal Cancer Screening: Colonoscopy 05/05/2035 05/05/2025, 05/05/2025 Pneumococcal Vaccine: 50+ Years Completed 10/29/2024 HIB Vaccines Aged Out No longer eligi ble based on patient's age to complete this topic HPV Vaccines Aged Out No longer eligi ble based on patient's age to complete this topic Hepatitis A Vaccines Aged Out No long er eligible based on patient's age to complete this topic Hepatitis B Vaccines Aged Out No long er eligible based on patient's age to complete this topic IPV Vaccines Aged Out No longer eligi ble based on patient's age to complete this topic MMR Vaccines Aged Out No longer eligi ble based on patient's age to complete this topic Meningococcal ACWY Vaccine Aged Out N o longer eligible based on patient's age to complete this topic Meningococcal B Vaccine Aged Out No l onger eligible based on patient's age to complete this topic RSV Immunization Patients Under 20 months Aged Out No longer eligible based on patient's age to complete this topic Varicella Vaccines Aged Out No longer eligible based on patient's age to complete this topic Procedures Procedure Name Priority Date/Time Associated Diagnosis Comments CBC WITH AUTO DIFFERENTIAL Routine 06/03/2025 10:42 AM EDT Multiple sclerosis ([facility]/HCC V24, CMS/HCC V28) Encounter for therapeutic drug monitoring HEPATIC FUNCTION PANEL Routine 06/03/2025 10:42 AM EDT Multiple sclerosis (CMS/HCC V24, CMS/HCC V28) Encounter for therapeutic drug monitoring CBC AND DIFFERENTIAL Routine 06/03/2025 10:42 AM EDT Multiple sclerosis (CMS/HCC V24, CMS/HCC V28) Encounter for therapeutic drug monitoring CREATININE, SERUM Routine 06/03/2025 10: 42 AM EDT Multiple sclerosis ([facility]/HCC V24, CMS/HCC V28) Encounter for therapeutic drug monitoring BUN Routine 06/03/2025 10:42 AM EDT Multiple sclerosis (CMS/HCC V24, CMS/HCC V28) Encounter for therapeutic drug monitoring EXTERNAL COLONOSCOPY REPORT Routine 05/05/2025 1:43 PM EDT EXTERNAL COLONOSCOPY REPORT Routine 05/05/2025 1:41 PM EDT from Last 3 Months Results * CBC auto differential (06/03/2025 10:42 AM EDT) WBC 5.3 4.8 - 10.8 K/mcL LAB HEMETOLOGY METHOD 06/03/2025 2:[address] [facility] RBC 4.60 3.80 - 4.80 M/mcL LAB HEMETOLOGY METHOD [facility]/03[facility] Hemoglobin 14.3 11.5 - 16.0 g/dL LAB HEMETOLOGY METHOD 06/03/2025 2:22 PM [facility] Hematocrit 42.6 35.0 - 47.0 % LAB HEMETOLOGY METHOD 06/03/2025 2:[facility] MCV 92.2 79.0 - 98.0 FL LAB HEMETOLOGY METHOD 06/03/2025 2:22 PM [facility] MCH 31.0 27.0 - 32.0 pcg LAB HEMETOLOGY METHOD 06/03/2025 2:22 PM [facility] MCHC 33.6 32.0 - 37.0 g/dL LAB HEMETOLOGY METHOD 06/03/2025 2:22 PM [facility] RDW 13.2 11.0 - 15.0 % LAB HEMETOLOGY METHOD 06/03/2025 2:22 PM [facility] Platelets 350 130 - 400 K/mcL LAB HEMETOLOGY METHOD 06/03/2025 2:22 PM [facility] MPV 10.8 7.0 - 11.0 FL LAB HEMETOLOGY METHOD 06/03/2025 2:22 PM [facility] NRBC 0.0 <1.0 % LAB HEMETOLOGY METHOD 06/03/2025 2:[facility] NRBC Absolute 0.00 <0.10 K/mcL LAB HEMETOLOGY METHOD 06/03/2025 2:22 PM [facility] Neutrophils Relative 55.9 % LAB HEMETOLOGY METHOD 06/03/2025 2:22 PM [facility] Lymphocytes Relative 32.8 % LAB HEMETOLOGY METHOD 06/03/2025 2:22 PM [facility] Monocytes Relative 8.9 % LAB HEMETOLOGY METHOD 06/03/2025 2:22 PM [facility] Eosinophils Relative 1.1 % LAB HEMETOLOGY METHOD 06/03/2025 2:22 PM [facility] Basophils Relative 0.9 % LAB HEMETOLOGY METHOD 06/03/2025 2:22 PM [facility] Immature Granulocytes Relative 0.4 % LAB HEMETOLOGY METHOD 06/03/2025 2:22 PM [facility] Neutrophils Absolute 2.97 1.50 - 7.00 K/mcL LAB HEMETOLOGY METHOD 06/03/2025 2:22 PM [facility] Lymphocytes Absolute 1.74 1.00 - 5.00 K/mcL LAB HEMETOLOGY METHOD 06/03/2025 2:22 PM [facility] Monocytes Absolute 0.47 0.20 - 1.00 K/mcL LAB HEMETOLOGY METHOD 06/03/2025 2:22 PM [facility] Eosinophils Absolute 0.06 0.00 - 0.50 K/mcL LAB HEMETOLOGY METHOD 06/03/2025 2:22 PM [facility] Basophils Absolute 0.05 0.00 - 0.20 K/mcL LAB HEMETOLOGY METHOD 06/03/2025 2:22 PM [facility] Immature Granulocytes Absolute 0.02 0.00 - 0.03 K/mcL LAB HEMETOLOGY METHOD 06/03/2025 2:22 PM [facility] Blood Venous blood specimen / Unknown Venipuncture / Unknown 06/03/2025 10:42 AM EDT 06/03/2025 10:42 AM EDT us Tawana L Panasci PA LAB BLOOD ORDERABLES Final R esult Performing Organization Address City/[facility]/ZIP Co de Phone Number [facility] [address] [place] [address], [place] [phone] * Creatinine (06/03/2025 10:42 AM EDT) Creatinine 0.88 0.50 - 1.10 mg/dL LAB CHEMISTRY METHOD 06/03/2025 3:[address] [facility] eGFR 73 >=60 mL/min/1. 73m2 LAB CHEMISTRY METHOD 06/03/2025 3:[address] [facility] Comment:Calculation based on the Chronic Kidney Disease Epidemiology Collaboration (CKD-EPI) equation refit without adjustment for race. Blood Venous blood specimen / Unknown Venipuncture / Unknown 06/03/2025 10:42 AM EDT 06/03/2025 10:42 AM EDT [employer] Panasci PA LAB BLOOD ORDERABLES Final R esult Performing Organization Address [facility]/ZIP Co de Phone Number [facility] [address] [place] [address], [place] [phone] * BUN (06/03/2025 10:42 AM EDT) BUN 18 5 - 25 mg/dL LAB CHEMISTRY METHOD 06/03/2025 3:[address] [facility] Blood Venous blood specimen / Unknown Venipuncture / Unknown 06/03/2025 10:42 AM EDT 06/03/2025 10:42 AM EDT Tawana L Panasci PA LAB BLOOD ORDERABLES Final R esult [facility] [address] [place] [address], [place] [phone] * Hepatic function panel (06/03/2025 10:42 AM EDT) Total Protein 7.2 6.0 - 8.0 g/dL LAB CHEMISTRY METHOD 06/03/2025 3:07 PM [facility] Albumin 3.8 3.2 - 5.0 g/dL LAB CHEMISTRY METHOD 06/03/2025 3:07 PM [facility] Total Bilirubin 0.6 0.0 - 1.4 mg/dL LAB CHEMISTRY METHOD 06/03/2025 3:07 PM [facility] Bilirubin, Direct 0.1 0.0 - 0.3 mg/dL LAB CHEMISTRY METHOD 06/03/2025 3:07 PM [facility] Comment:Hemolysis present Bilirubin, Indirect 0.5 0.0 - 1.1 mg/dL LAB CHEMISTRY METHOD 06/03/2025 3:07 PM [facility] ALT (SGPT) 25 10 - 60 unit/L LAB CHEMISTRY METHOD 06/03/2025 3:07 PM [facility] AST (SGOT) 32 10 - 42 unit/L LAB CHEMISTRY METHOD 06/03/2025 3:07 PM [facility] Comment:Hemolysis present Alkaline Phosphatase 78 42 - 121 unit/L LAB CHEMISTRY METHOD 06/03/2025 3:07 PM [facility] Blood Venous blood specimen / Unknown Venipuncture / Unknown 06/03/2025 10:42 AM EDT 06/03/2025 10:42 AM EDT us Tawana ROMAN LAB BLOOD ORDERABLES Final R esult [facility] [address] [place] [address], [place] [phone] * External Colonoscopy Report (05/05/2025 1:43 PM EDT) Only the most recent of2 resultswithin the time period is included. Anatomical Region Laterality Modality Endoscopy us Historical Provider MD LEE~PROCEDURE ORDERABLES F inal Result from Last 3 Months Insurance MEDICARE [facility] Care Teams Entrepreneur Relationship Specialty Start Date End Date Ramana Kraft MD [address] [phone] PCP - General Internal Medicine 02/05/18
== END 2025-07-24 11:54 | disposition home or self-care (01) ==
LOC: HO.HPS 11:19
PROVIDERS: PCP Internal Medicine; Visit Provider Hospitalist
DX: R05.3 Chronic cough (principal); J98.4 Other disorders of lung; K44.9 Diaphragmatic hernia without obstruction or gangrene; J45.40 Moderate persistent asthma, uncomplicated
CPT/HCPCS: 99214; G2211

== ENCOUNTER → 2025-07-24 11:19 | Outpatient (BNVA) | payer MEDICARE, OTHER, SELFPAY | PROVIDERS: PCP Internal Medicine; Visit Provider Hospitalist | DX: R05.3 Chronic cough (principal); J98.4 Other disorders of lung; K44.9 Diaphragmatic hernia without obstruction or gangrene; J45.40 Moderate persistent asthma, uncomplicated | CPT/HCPCS: 99212 ==